=== PATIENT | male | born 1980 | race African-American/Black ===

== ENCOUNTER 2024-12-31 08:01 | Emergency (ER) | payer OTHER, SELFPAY ==
[2024-12-31 08:05] VITALS: BP 166/98
--- NOTE | 2024-12-31 09:30 | ED.GENMED ---
History of Present Illness
General
Chief Complaint: Musculo-Skeletal Complaint
Source: patient
Exam Limitations: none
Time Seen by Provider: 12/31/24 09:03
History of Present Illness
History of Present Illness:
44yoM with history of hypertension and obesity presenting for evaluation of left knee pain x 2 days. Patient was at a [employer] game 3 days ago. He was sitting in the stands and his left knee rubbed against the seat in front of him. He woke up the
next morning with pain. He denies any specific injury. His pain persisted which prompted him to come to the ED. He is able to bear weight. He denies any fevers, chills, or paresthesias. He is otherwise asymptomatic. No prior history of
diabetes, IVDU, or MRSA.
Past History
Past History
ED Past Medical History: Asthma
ED Past Surgical History: None
Social History
Tobacco: Non-smoker
Phy Exam
General Physical Exam
General Presentation: well appearing and no apparent distress
General age: appears stated age
General Skin: warm and dry
General Habitus: normal
General Mental: alert
ENT Exam
ENT Exam: normocephalic
Pulmonary Exam
Pulmonary Exam: no respiratory distress
Neurological Exam
Neurological Exam: alert
S[place] Coma Scale
Eye Opening: Spontaneous
Verbal Response: Oriented
Motor Response: Obeys Commands
GCS Total Score: 15
Musculoskeletal Exam
Musculoskeletal Exam: other (L knee: There is a faint scratch noted to the inferior aspect of the anterior knee with surrounding erythema, warmth, and tenderness. ROM elicits pain although patient is able to flex to 90 degrees. No joint effusion
noted. No crepitus or pain out of proportion. 2+ DP pulse.)
Skin Exam
Skin Exam: warm/dry
Psychiatric Exam
Psychiatric Exam: normal mood/affect
Course
Orders/Labs/Results
Orders:
Orders
12/31/24 08:08
Knee, Left 4 or More Views [CR Knee - Left 4 Or More View*] Urgent
Comment:
Reason For Exam: pain
12/31/24 09:40
Cephalexin Monohydrate [Keflex] 500 mg PO NOW STA
Vital Signs
Initial and Last Documented VS:
Initial Vital Signs
Temp Pulse Resp BP Pulse Ox
98.6 F 97 16 166/98 98
12/31/24 08:05 12/31/24 08:05 12/31/24 08:05 12/31/24 08:05 12/31/24 08:05
Last Documented Vital Signs
Temp Pulse Resp BP Pulse Ox
98.6 F 97 16 166/98 98
12/31/24 08:05 12/31/24 08:05 12/31/24 08:05 12/31/24 08:05 12/31/24 08:05
MDM/Problems Addressed
Differential Diagnosis Includes:
44yoM here with L knee pain x 2 days. Denies specific injury. There is a faint scratch to the anterior knee on exam with surrounding erythema and warmth consistent with cellulitis. No joint effusion or pain with micromotion to suggest septic
arthritis. No clinical signs of NSTI including no bullae, pain out of proportion, or crepitus.
X-rays of knee obtained which are negative for acute osseous abnormalities. Area of redness was delineated with skin marker. He was started on a course of Keflex. Advised close follow-up with PCP and strict ED return precautions reviewed.
Patient in agreement with plan and was discharged in stable condition.
*Critical Care Note
Total Time (30-74mins, 75-104mins- exclusive of procedures): Not Applicable
ED Attending Note
-
Portions of this chart may have been created with voice recognition software.� Occasional wrong word or��sound alike� substitutions may have occurred due to the inherent limitations of voice recognition software.
Discharge Plan
Departure
Patient Disposition: Home (Routine Discharge)
Date of Disposition: 12/31/24
Time of Disposition: 09:39
Patient with high blood pressure during this ER visit?: Yes
Discharge Problem:
Cellulitis of left knee
Instructions: Cellulitis (skin infection) in adults - ED discharge instructions
Prescriptions:
New
cephalexin 500 mg capsule
500 mg PO Q6H 7 Days Qty: 27 0RF
No Action
albuterol sulfate 2.5 MG/3 ML solution for nebulization
2.5 mg inhalation R Q4HPRN PRN (Reason: wheezing) Qty: 30 0RF
Activity Restrictions/Additional Instructions:
Take antibiotics as prescribed. Rest, ice, compress, and elevate your knee. Take ibuprofen as needed for pain.
Please follow-up with your family doctor in 3 to 4 days. Return to the ER immediately with any new or worsening symptoms including spreading redness, fevers, or chills.
Interventions
Interventions:
*Risk Screen - Suicide Last Done: 12/31/24 08:05
*General Assessment Last Done: 12/31/24 10:11
*Neglect/Abuse Screening Last Done: 12/31/24 08:05
*ED- Fall Risk Assessment Last Done: 12/31/24 10:11
*ED COVID-19 Vaccine History Last Done: 12/31/24 10:11
*Nursing Disposition Last Done: 12/31/24 10:11
ED-Musculoskeletal Assessment Last Done: 12/31/24 10:12
Discharge Date and Time
Discharge Date/Time: 12/31/24 10:12
Print Language: BELARUSIAN
[2024-12-31] MEDS: KEFLEX 500 MG PO (09:44)
== END 2024-12-31 10:12 | disposition home or self-care (01) ==
LOC: EMR 08:01
PROVIDERS: EMERGENCY PHYSICIAN Emergency Medicine; FAMILY PHYSICIAN Family Medicine
DX: L03.116 Cellulitis of left lower limb (principal); I10 Essential (primary) hypertension; E66.9 Obesity, unspecified; J45.909 Unspecified asthma, uncomplicated
CPT/HCPCS: 99283; 73564

== ENCOUNTER 2025-08-14 21:00 | Emergency (ER) | payer BC, SELFPAY ==
[2025-08-14 21:03] VITALS: BP 164/112
[2025-08-14 21:16] LABS: Urine Character Clear (Clear)
[2025-08-14 21:23] LABS: Urine Squamous Cell 26-30 /LPF (Few)
[2025-08-14 21:24] LABS: Urine White Cell 0-2 /HPF (0-5)
--- NOTE | 2025-08-14 21:35 | ED.GENMED ---
History of Present Illness
General
Chief Complaint: Male Genito-Urinary Symptoms
Time Seen by Provider: 08/14/25 21:20
History of Present Illness
History of Present Illness:
Goldy is a 45-year-old male with no PMH who presents today with 3 days of burning after urination. Reports that 1 week ago had unprotected sex with a new partner and he is concerned for the possibility of an STD. States that the burning is
localized to his penis and he has no suprapubic tenderness. Denies any fevers, chills, nausea, vomiting.
Past History
Past History
ED Past Medical History: Asthma
ED Past Surgical History: None
Social History
Tobacco: Non-smoker
Phy Exam
General Physical Exam
General Presentation: well appearing and no apparent distress
General Skin: warm and dry
General Habitus: normal
General Mental: alert
General Hydration: appears well hydrated
ENT Exam
ENT Exam: EOMI, pharynx normal, neck supple and normocephalic
Eye Exam
Eye Exam: PERRL, cornea clear and conjunctiva normal
Cardiovascular Exam
Cardiovascular Exam: regular rate/rhythm, no edema, no murmur and normal peripheral pulses
Pulmonary Exam
Pulmonary Exam: lungs clear, no respiratory distress, no rales, no crackles, no rhonchi, no stridor, no wheezing and no cough
Gastrointestinal Exam
Gastrointestinal Exam: normal bowel sounds, non tender, soft, no organomegaly, no pulsatile mass and non distended
Neurological Exam
Neurological Exam: alert, oriented x3, no motor deficits and speech normal
Musculoskeletal Exam
Musculoskeletal Exam: full ROM and no edema
Skin Exam
Skin Exam: normal color, warm/dry, no rash and no petechia
Psychiatric Exam
Psychiatric Exam: normal mood/affect
Course
Orders/Labs/Results
Orders:
Orders
08/14/25 21:09
Urinalysis Reflex To Culture Urgent
Date Specimen was Collected: 08/14/25
Time Specimen was Collected: 21:06
Urine Microscopic Reflex Cult Urgent
08/14/25 21:27
CefTRIAXone [Rocephin] 1,000 mg Intramuscular Injection 0 ml IM ONCE
Doxycycline [Vibramycin] 100 mg PO NOW STA
08/14/25 21:32
Add On - Microbiology Urgent
Tests Added?: GC/chalamydia PCR, urine
Abnormal Lab Results
08/14/25
21:09
Ur Occult Blood Reflex 2+ A
(Negative)
Urine RBC 7-10 A /HPF
(0-2)
Urine Bacteria (Reflex) Few A
(Negative)
Urine Albumin (Reflex) 1+ A
(Neg - Trace)
Vital Signs
Initial and Last Documented VS:
Initial Vital Signs
Temp Pulse Resp BP Pulse Ox
36.6 C 83 16 164/112 98
08/14/25 21:03 08/14/25 21:03 08/14/25 21:03 08/14/25 21:03 08/14/25 21:03
Last Documented Vital Signs
Temp Pulse Resp BP Pulse Ox
36.6 C 83 16 164/112 98
08/14/25 21:03 08/14/25 21:03 08/14/25 21:03 08/14/25 21:03 08/14/25 21:03
MDM/Problems Addressed
Differential Diagnosis Includes:
UA obtained and negative for any infection. GC/chlamydia PCR sent. However, given concern for STD will prophylactically treat with ceftriaxone and doxycycline. Rx sent to pharmacy for doxy x7 days.
*Pulse Oximetry
SaO2: 98
Oxygen Mode of Delivery: Room air
Patient hypoxic: no
*Critical Care Note
Total Time (30-74mins, 75-104mins- exclusive of procedures): Not Applicable
ED Attending Note
-
Portions of this chart may have been created with voice recognition software.� Occasional wrong word or��sound alike� substitutions may have occurred due to the inherent limitations of voice recognition software.
Discharge Plan
Departure
Patient Disposition: Home (Routine Discharge)
Date of Disposition: 08/14/25
Time of Disposition: 21:30
Patient with high blood pressure during this ER visit?: Yes
Discharge Problem:
Concern about STD in male without diagnosis
Instructions: Sexually transmitted infections - ED (DC)
Prescriptions:
New
doxycycline hyclate 100 mg tablet
100 mg PO BID 7 Days Qty: 14 0RF
No Action
albuterol sulfate 2.5 MG/3 ML solution for nebulization
2.5 mg inhalation R Q4HPRN PRN (Reason: wheezing) Qty: 30 0RF
cephalexin 500 mg capsule
500 mg PO Q6H 7 Days Qty: 27 0RF
Activity Restrictions/Additional Instructions:
Gonorrhea and Chlamydia testing have been sent and are pending at this time. You will receive a phone call if the culture results are positive. You are given prophylactic antibiotics while in the emergency department. It is important to take the
full course of antibiotics as prescribed. Follow-up with PCP if symptoms do not improve
Interventions
Interventions:
*Risk Screen - Suicide Last Done: 08/14/25 21:03
*General Assessment Last Done: 08/14/25 21:03
*Neglect/Abuse Screening Last Done: 08/14/25 21:03
*ED COVID-19 Vaccine History Last Done: 08/14/25 21:21
*ED Influenza Vaccine History Last Done: 08/14/25 21:21
[facility] Risk Assessment Tool Last Done: 08/14/25 21:12
ED-Male Genitourinary Assessment Last Done: 08/14/25 21:22
Discharge Date and Time
Print Language: TURKISH
[2025-08-14] MEDS: VIBRAMYCIN 100 MG PO (22:08)
[2025-08-14] MEDS: ROCEPHIN 2.8571 MG IM (22:08)
== END 2025-08-14 22:22 | disposition home or self-care (01) ==
LOC: EMR 21:00
PROVIDERS: Emergency Medicine; EMERGENCY PHYSICIAN Emergency Medicine; FAMILY PHYSICIAN Family Medicine
DX: Z20.2 Contact with and (suspected) exposure to infections with a predominantly sexual mode of transmission (principal); R39.198 Other difficulties with micturition; J45.909 Unspecified asthma, uncomplicated
CPT/HCPCS: 96372; 99284; 81003; 81015; 87491; 87591